=== PATIENT | male | born 1985 | race Caucasian/White ===

== ENCOUNTER 2017-01-12 07:18 | Emergency (ER) | payer MEDICAID ==
[2017-01-12 07:24] VITALS: BMI 34.4
[2017-01-12 07:26] VITALS: BP 151/99; RESP 18; TEMP 98; O2SAT 100
--- NOTE | 2017-01-12 08:54 | ED PDOC ---
HPI: Headache Time Seen by Provider: 01/12/17 08:20 Chief Complaint (Nursing): Headache Chief Complaint (Provider): Vertigo, headache History Per: Patient History/Exam Limitations: no limitations Onset/Duration Of Symptoms: Days (x 1 month) Current Symptoms Are (Timing): Still Present Quality: Dull, Aching Additional Complaint(s): Hilton is a 31 y/o male who presents to ED complaining of vertigo, dizziness, nasal congestion, sinus pain, ongoing for about 1 month but worsened this morning. States having similar symptoms in past, which he attributes to allergies. Has been taking Claritin without relief. Headache described as a dull , aching, frontal headache associated with vertigo. No blurred vision, double vision, numbness, tingling or weakness. PMD: Minnie Cabrera Past Medical History Reviewed: Historical Data, Nursing Documentation, Vital Signs Vital Signs: Last Vital Signs Temp 98.0 F 01/12/17 07:25 Pulse 86 01/12/17 07:25 Resp 18 01/12/17 07:25 BP 151/99 H 01/12/17 07:25 Pulse Ox 100 01/12/17 07:25 - Medical History PMH: No Chronic Diseases - Family History Family History: States: Unknown Family Hx - Social History Current smoker - smoking cessation education provided: No Alcohol: Social Drugs: Denies - Home Medications Home Medications: Ambulatory Orders Medication Instructions Recorded Acetaminophen [Acetaminophen Extra 2 tab PO Q4 PRN #24 tablet 06/18/16 Strength] Docusate [Colace] 100 mg PO BID PRN #14 cap 06/18/16 Ibuprofen [Motrin] 600 mg PO Q8 PRN #21 tab 06/18/16 Promethazine/Codeine 5 ml PO Q12 PRN #100 ml 06/18/16 [Codeine/Promethazine 10 MG/5 Ml-6.25 MG/5 Ml] Amoxicillin/Clavulanate [Augmentin 1 tab PO BID #28 tab 01/12/17 875 MG-125 MG] Meclizine [Meclizine*] 25 mg PO Q6 #30 tab 01/12/17 - Allergies Allergies/Adverse Reactions: Allergies Allergy/AdvReac Type Severity Reaction Status Date / Time No Known Allergies Allergy Verified 06/18/16 18:11 Review of Systems ROS Statement: Except As Marked, All Systems Reviewed And Found Negative Eyes: Negative for: Vision Change ENT: Positive for: Nose Congestion, Other (Sinus pain) Neurological: Positive for: Headache (with vertigo), Dizziness. Negative for: Weakness, Numbness (and tingling) Physical Exam - Reviewed Nursing Documentation Reviewed: Yes Vital Signs Reviewed: Yes - Physical Exam Appears: Positive for: No Acute Distress, Uncomfortable Head Exam: Positive for: ATRAUMATIC, NORMAL INSPECTION, NORMOCEPHALIC Skin: Positive for: Normal Color, Warm, Dry Eye Exam: Positive for: Normal appearance (Sclerae white), EOMI, PERRL Neck: Positive for: Normal (with no meningeal signs), Supple Cardiovascular/Chest: Positive for: Regular Rate, Rhythm. Negative for: Murmur Respiratory: Positive for: Normal Breath Sounds (Lungs clear bilaterally). Negative for: Respiratory Distress Back: Positive for: Normal Inspection. Negative for: L CVA Tenderness, R CVA Tenderness Extremity: Positive for: Normal ROM. Negative for: Pedal Edema, Deformity Neurologic/Psych: Positive for: Alert, psychology tech II-XII (intact), Oriented, Cerebellar Tests (normal), Gait (steady), Other (strength is 5/5 throughout). Negative for: Motor/Sensory Deficits - Laboratory Results Result Diagrams: 01/12/17 08:40 01/12/17 08:40 - ECG ECG: Positive for: Interpreted By Me, Viewed By Me ECG Rhythm: Positive for: Sinus Rhythm. Negative for: ST/T Changes Rate: 74 O2 Sat by Pulse Oximetry: 100 (RA) Pulse Ox Interpretation: Normal Medical Decision Making Medical Decision Making: Time: 8:33 Initial Plan: --CT Head to r/o ICH --Patient given Meclizine PO --Ordered labs and EKG --Pending reevaluation Time: 10:18 CT Head w/o contrast: FINDINGS: HEMORRHAGE: No acute parenchymal, subarachnoid or extra-axial hemorrhage. BRAIN: No evidence of large acute infarct. No obvious parenchymal nor extra-axial mass or collection. . Volume loss findings suggest mild volume loss VENTRICLES: No evidence of hydrocephalus however there is minor asymmetry of the lateral ventricles left-sided which slightly larger than right which represents an anatomic variation CALVARIUM: No acute calvarial fractures. PARANASAL SINUSES: Minor mucosal thickening noted within several right anterior ethmoid air cells extending slightly into the inferior margin right aspect frontal sinus. MASTOID AIR CELLS: Unremarkable as visualized. No inflammatory changes. OTHER FINDINGS: None. IMPRESSION: No acute intracranial hemorrhage. Time: :43 Clinical Impression: Vertigo Upon provider reevaluation patient is medically stable, and requires no further treatment in the ED at this time. Patient will be discharged with Rx for Meclizine and Augmentin. Counseling was provided and all questions were answered regarding diagnosis and need for follow up with PMD. There is agreement to discharge plan. Return if symptoms persist or worsen. Scribe Attestation: Documented by Loree Loza, acting as a scribe for Alex Huang MD Provider Scribe Attestation: All medical record entries made by the Scribe were at my direction and personally dictated by me. I have reviewed the chart and agree that the record accurately reflects my personal performance of the history, physical exam, medical decision making, and the department course for this patient. I have also personally directed, reviewed, and agree with the discharge instructions and disposition. Disposition - Clinical Impression Clinical Impression: Vertigo - Patient ED Disposition Is Patient to be Admitted: No Counseled Patient/Family Regarding: Studies Performed, Diagnosis, Need For Followup, Rx Given - Disposition Referrals: [facility] [Outside] Disposition: Routine/Home Disposition Time: :43 Condition: GOOD Prescriptions: Amoxicillin/Clavulanate [Augmentin 875 MG-125 MG] 1 tab PO BID #28 tab Meclizine [Meclizine*] 25 mg PO Q6 #30 tab Instructions: Sinusitis (ED), Vertigo (ED) Forms: Carmine (Citizen [place])
[2017-01-12 08:57] VITALS: PULSE 74
[2017-01-12 09:12] LABS: BASO # 0.1 K/uL (0.0-0.2); BASO % 0.9 % (0.0-2.0); EOS % 0.5 % (0.0-4.0); HEMATOCRIT 44.6 % (35.0-51.0); LYMPH # 2.4 K/uL (1.0-4.3); LYMPH % 28.4 % (20.0-40.0); MEAN CORPUSCULAR HGB CONC 34.1 g/dL (33.0-37.0); MEAN PLATELET VOLUME 9.8 fl (7.2-11.7); MONO # 0.5 K/uL (0.0-0.8); MONO % 6.3 % (0.0-10.0); NEUT # 5.5 K/uL (1.8-7.0); NEUT % 63.9 % (50.0-75.0); NRBC % 0.1 % (0.0-0.0); RED CELL DISTRIBUTION WIDTH 14.5 % (11.5-14.5); WHITE BLOOD COUNT 8.6 K/uL (4.8-10.8)
[2017-01-12 09:18] LABS: ALB/GLOB RATIO 1.3 (1.0-2.1); ALKALINE PHOSPHATASE 78 U/L (38-126); ALT/SGPT 43 U/L (21-72); AST/SGOT 33 U/L (17-59); BILIRUBIN,TOTAL 0.6 mg/dl (0.2-1.3); BLOOD UREA NITROGEN 14 mg/dl (9-20); CALCIUM 9.9 mg/dL (8.4-10.2); CARBON DIOXIDE 20 mmol/L (22-30); CHLORIDE 107 mmol/L (98-107); GFR AFRICAN-AMERICAN > 60; GLUCOSE,RANDOM 111 mg/dL (75-110); POTASSIUM 4.2 MMOL/L (3.6-5.0); SODIUM 141 mmol/l (132-148); TOTAL PROTEIN 8.2 G/DL (6.3-8.2)
--- NOTE | 2017-01-12 10:20 | CT ---
PROCEDURE: CT HEAD WITHOUT CONTRAST. HISTORY: Headache COMPARISON: None available. TECHNIQUE: Axial computed tomography images were obtained through the head/brain without intravenous contrast. Radiation dose: Total exam DLP = 1592.17 mGy-cm. This CT exam was performed using one or more of the following dose reduction techniques: Automated exposure control, adjustment of the mA and/or kV according to patient size, and/or use of iterative reconstruction technique. FINDINGS: HEMORRHAGE: No acute parenchymal, subarachnoid or extra-axial hemorrhage. BRAIN: No evidence of large acute infarct. No obvious parenchymal nor extra-axial mass or collection. . Volume loss findings suggest mild volume loss VENTRICLES: No evidence of hydrocephalus however there is minor asymmetry of the lateral ventricles left-sided which slightly larger than right which represents an anatomic variation CALVARIUM: No acute calvarial fractures. PARANASAL SINUSES: Minor mucosal thickening noted within several right anterior ethmoid air cells extending slightly into the inferior margin right aspect frontal sinus. MASTOID AIR CELLS: Unremarkable as visualized. No inflammatory changes. OTHER FINDINGS: None. IMPRESSION: No acute intracranial hemorrhage.
--- NOTE | 2017-01-13 09:31 | CARD ---
APPROVED REPORT EKG Measurement Heart [id number] [place] [id number] <Conclusion> Normal sinus rhythm Normal ECG
== END 2017-01-12 10:53 | disposition home or self-care (01) ==
LOC: H.ER 07:18
DX: R42 Dizziness and giddiness (principal); R51 Headache